=== PATIENT | female | born 1940 | race Caucasian/White ===

== ENCOUNTER → 2017-08-21 | Outpatient (CLI) | payer MEDICARE | END | disposition home or self-care (01) | LOC: PCVCCLINIC 12:20 | PROVIDERS: ATTEND Internal Medicine Cardiovascular Disease | DX: I10 Essential (primary) hypertension (principal); R01.1 Cardiac murmur, unspecified; E78.00 Pure hypercholesterolemia, unspecified; I35.1 Nonrheumatic aortic (valve) insufficiency; Z82.49 Family history of ischemic heart disease and other diseases of the circulatory system | CPT/HCPCS: 80061; 93005; G0463 ==

== ENCOUNTER → 2018-03-12 | Outpatient (CLI) | payer MEDICARE | END | disposition home or self-care (01) | LOC: PCVCIMAG 13:08 | DX: I35.1 Nonrheumatic aortic (valve) insufficiency (principal); I10 Essential (primary) hypertension; E78.00 Pure hypercholesterolemia, unspecified; R01.1 Cardiac murmur, unspecified; Z79.899 Other long term (current) drug therapy | CPT/HCPCS: 80061; 93005; 93306; G0463 ==

== ENCOUNTER → 2019-06-18 | Outpatient (CLI) | payer MEDICARE ==
--- NOTE | 2019-06-18 15:18 | PCVCIMAG ---
APPROVED REPORT Study performed: 06/18/2019 13:37:18 EXAM: Comprehensive 2D, Doppler, and color-flow Echocardiogram Patient Location: Echo lab Status: routine BSA: 1.76 HR: 84 bpmBP: 126/68 mmHg Rhythm: NSR Other Information Study Quality: Adequate Risk Factors: Cardiac Risk Factors: HTN, Hyperlipidemia Indications aortic insufficiency 2D Dimensions IVSd: 15.02 (7-11mm) LVDd: 28.27 mm PWd: 14.63 (7-11mm)Ascending Ao: 33.43 (22-36mm) LVDs: 21.56 (25-40mm) Left Atrium: 33.63 (27-40mm) Aortic Root: 32.39 mm LV Single Plane 4CH: 62.05 % LV Single Plane 2CH: 63.27 % Biplane EF: 63.3 % Volumes Left Atrial Volume (Systole) Single Plane 4CH: 41.93 mLSingle Plane 2CH: 48.72 mL LA ESV Index: 26.00 mL/m2 Aortic Valve AoV Peak Cj.: 2.16 m/s AO Peak Gr.: 18.65 mmHgLVOT Max P.43 mmHg LVOT Max V: 1.36 m/s AI Vmax: 4.11 m/s AI [place]: 2.35 m/s2 AI PHT: 506.15 ms Mitral Valve E/A Ratio: 0.6 MV Decel. Time: 325.45 ms MV E Max Cj.: 0.74 m/s MV A Cj.: 1.19 m/s IVRT: 107.27 ms Pulmonary Valve PV Peak Cj.: 1.07 m/sPV Peak Gr.: 4.56 mmHg Pulmonary Vein P Vein S: 0.24 m/sP Vein A: 0.38 m/s P Vein D: 0.32 m/sP Vein A Dur.: 134.9 msec P Vein S/D Ratio: 0.75 Tricuspid Valve TR Peak Cj.: 2.59 m/s TR Peak Gr.: 26.78 mmHg Left Ventricle The left ventricle is normal size. There is normal LV segmental wall motion. Moderate concentric left ventricular hypertrophy. Left ventricular systolic function is normal. The left ventricular ejection fraction is within the normal range. LVEF is 65%. Grade I - abnormal relaxation pattern. Right Ventricle The right ventricle is normal size. The right ventricular systolic function is normal. Atria The left atrium size is normal. The right atrium size is normal. Aortic Valve Mild aortic valve sclerosis. Mild aortic regurgitation. There is no aortic valvular stenosis. Mitral Valve Mild mitral annular calcification. There is no mitral valve regurgitation noted. No evidence of mitral valve stenosis. Tricuspid Valve The tricuspid valve is normal in structure. Trace tricuspid regurgitation with PAP of 34 mmHg. Pulmonic Valve The pulmonary valve is normal in structure. There is no pulmonic valvular regurgitation. Great Vessels The aortic root is normal in size. IVC is normal in size and collapses >50% with inspiration. Pericardium There is no pericardial effusion. There is no pleural effusion. <Conclusion> The left ventricle is normal size. Moderate concentric left ventricular hypertrophy. LVEF is 65%. Grade I - abnormal relaxation pattern. The right ventricle is normal size. The left atrium size is normal. Mild aortic valve sclerosis. Mild aortic regurgitation. There is no mitral valve regurgitation noted. Trace tricuspid regurgitation with PAP of 34 mmHg. The aortic root is normal in size. There is no pericardial effusion.
== END | disposition home or self-care (01) ==
LOC: PCVCIMAG 13:47
PROVIDERS: ATTEND Internal Medicine Cardiovascular Disease
DX: I08.2 Rheumatic disorders of both aortic and tricuspid valves (principal)
CPT/HCPCS: 93306